=== PATIENT | female | born 2000 | race Caucasian/White ===

== ENCOUNTER 2021-02-13 11:53 | Emergency (ER) | payer BC ==
[~2021-02-13] VITALS: Ht 165.1 cm; Wt 84.1 kg
[2021-02-13 12:46] VITALS: TEMP 98
[2021-02-13 13:21] LABS: BASO % 0.3 % (0.0-2.0); EOS # 0.1 (0.0-0.7); EOS % 1.3 % (0-4.0); GRAN # 4.6 (1.4-6.5); GRAN % 68.2 % (42.2-75.2); HEMATOCRIT 38.4 % (35.0-45.0); HEMOGLOBIN 12.9 g/dl (12.0-15.0); LYMPH # 1.6 (1.2-3.4); LYMPH % 23.9 % (20.0-51.0); MEAN CELL VOLUME 88 fl (80.0-95.0); MEAN CORPUSCULAR HEMOGLOBIN 30 pg (26.0-32.0); MEAN CORPUSCULAR HGB CONC 34 g/dl (33.0-37.0); MEAN PLATELET VOLUME 10.2 fl (7.4-10.4); MONO # 0.4 (0.1-0.6); PLATELET COUNT 261 K/mm3 (130-400); RED BLOOD COUNT 4.38 M/mm3 (4.10-5.30); REDCELL DISTRIBUTION WIDTH-CV 12.1 % (11.5-14.5)
[2021-02-13] MEDS ORDERED: ZOFRAN ODT8 MG PO (13:25)
[2021-02-13 13:31] LABS: MUCOUS Present /lpf; PH 5 (5-8); SQUAMOUS EPITHELIAL 0-2 /hpf; URINE APPEARANCE Clear; URINE BACTERIA None Seen /hpf; URINE BILIRUBIN Negative (NEGATIVE); URINE BLOOD 3+ (NEGATIVE); URINE COLOR Yellow; URINE GLUCOSE Negative (NEGATIVE); URINE KETONE Negative (NEGATIVE); URINE LEUKOCYTE ESTERASE Negative (NEGATIVE); URINE NITRATE Negative (NEGATIVE); URINE PROTEIN(semi-quant) Negative (NEGATIVE); URINE RBC 20-50 /hpf; URINE UROBILINOGEN Negative (NEGATIVE); URINE WBC 0-2 /hpf
[2021-02-13 13:35] LABS: ALBUMIN 4.8 gm/dL (3.5-5.0); BILIRUBIN,TOTAL 1.1 mg/dL (0.0-1.0); CALCIUM 9.5 mg/dL (8.4-10.2); CREATININE, serum 0.61 (0.52-1.25); POTASSIUM 4.1 mmol/L (3.4-5.0)
[2021-02-13 13:51] LABS: COLLECTION METHOD CLEAN CATCH
[2021-02-13] MEDS ORDERED: NORCO 325 MG-51 TAB PO (15:23)
[2021-02-13] MEDS ORDERED: MIRALAX PA17 GM/Dose PO (15:24)
[2021-02-13 15:34] VITALS: BP 111/61; PULSE 80
[2021-04-12] MEDS ORDERED: ADVIL200 MG PO (20:03)
[2021-04-12] MEDS ORDERED: DIFLUCAN150 MG PO (21:07)
[2021-04-12] MEDS ORDERED: ULTRAM 50MG TAB50 MG PO (21:07)
== END 2021-02-13 15:35 | disposition home or self-care (01) ==
LOC: COL.ER 11:53
PROVIDERS: Nurse Practitioner Primary Care
DX: R10.10 Upper abdominal pain, unspecified (principal); K59.00 Constipation, unspecified; Z90.49 Acquired absence of other specified parts of digestive tract; Z88.6 Allergy status to analgesic agent
CPT/HCPCS: J2270; J2405; Q9967

== ENCOUNTER 2021-02-23 06:54 | Day surgery (SDC) | payer BC ==
[~2021-02-23] VITALS: Ht 165.1 cm; Wt 83.5 kg
[~2021-02-23 06:54] MED LIST: MIRALAX PA17 GM/Dose PO; NORCO 325 MG-51 TAB PO; ZOFRAN ODT8 MG PO
[2021-02-23 07:52] VITALS: BP 132/89; PULSE 95; TEMP 98.6
[2021-02-23 08:50] VITALS: BP 100/71; PULSE 16; TEMP 97.6
[2021-02-23 09:05] VITALS: BP 107/72; PULSE 79; TEMP 97.7
[2021-02-23 09:20] VITALS: BP 102/71; PULSE 66
--- NOTE | 2021-02-23 10:03 | NUR ---
0850: PATIENT ARRIVED BACK INTO [facility] VIA CART. AMBULATED TO CHAIR. VITALLY STABLE. REQUESTING SPRITE AT THIS TIME. TOLERATED WELL. 0905: VITALLY STABLE. 0920: VITALLY STABLE. PATIENT WENT TO RESTROOM, GOT DRESSED. REQUESTED CHOCOLATE PUDDING AND TOLERATED WELL. 0940: DR. DIETRICH TO SEE PT. PATIENT'S MOM ON PHONE PER PATIENT REQUEST. 0950: DISCHARGE INFORMATION GIVEN TO PATIENT, QUESTIONS ANSWERED. VERBALIZED UNDERSTANDING TO EDUCATION.
--- NOTE | 2021-02-23 10:38 | NUR ---
1010: PATIENT'S BOYFRIEND NOTIFIED PATIENT HE WAS HERE TO PICK HER UP. PATIENT ESCORTED TO ENTRANCE VIA WHEELCHAIR WITH RN.
[2021-04-12] MEDS ORDERED: ADVIL200 MG PO (20:03)
[2021-04-12] MEDS ORDERED: ULTRAM 50MG TAB50 MG PO (21:07)
[2021-04-12] MEDS ORDERED: DIFLUCAN150 MG PO (21:07)
== END 2021-02-23 10:12 | disposition home or self-care (01) ==
LOC: SDCO 06:54
DX: R11.2 Nausea with vomiting, unspecified (principal); R19.7 Diarrhea, unspecified; R19.5 Other fecal abnormalities; K64.0 First degree hemorrhoids; R63.0 Anorexia; K90.41 Non-celiac gluten sensitivity; Z79.899 Other long term (current) drug therapy
CPT/HCPCS: J2405; J2704; J7120

== ENCOUNTER → 2021-04-02 | Outpatient (CLI) | payer BC ==
[~2021-04-02] MED LIST changes: +ADVIL200 MG PO; +DIFLUCAN150 MG PO; +ULTRAM 50MG TAB50 MG PO
== END ==
LOC: COL.RAD 03-26 14:15
DX: K80.20 Calculus of gallbladder without cholecystitis without obstruction (principal)

== ENCOUNTER → 2021-04-19 | Outpatient (CLI) | payer BC | LOC: COL.RAD 10:00 | DX: R10.9 Unspecified abdominal pain (principal); R19.7 Diarrhea, unspecified | CPT/HCPCS: A9537; J2805 ==